=== PATIENT | male | born 1975 | race Caucasian/White ===

== ENCOUNTER 2016-04-30 17:34 | Emergency (ER) | payer OTHER ==
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
[~2016-04-30 17:34] MED LIST: NO MEDICATIONS
== END 2016-04-30 18:17 | disposition home or self-care (01) ==
LOC: CFTX 17:34
DX: S46.912A Strain of unspecified muscle, fascia and tendon at shoulder and upper arm level, left arm, initial encounter (principal); S80.02XA Contusion of left knee, initial encounter; F17.210 Nicotine dependence, cigarettes, uncomplicated; V43.52XA Car driver injured in collision with other type car in traffic accident, initial encounter
CPT/HCPCS: 29530; 70450; 71020; 73562; 99284

== ENCOUNTER → 2016-05-17 | Outpatient (CLI) | payer OTHER ==
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
== END | disposition home or self-care (01) ==
LOC: SRAD 11:08
DX: S29.9XXA Unspecified injury of thorax, initial encounter (principal)
CPT/HCPCS: 72070; 73030

== ENCOUNTER 2016-08-27 23:23 | Emergency (ER) | payer OTHER ==
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
== END 2016-08-28 05:00 | disposition home or self-care (01) ==
LOC: CED 23:23
DX: S09.90XA Unspecified injury of head, initial encounter (principal); S22.42XA Multiple fractures of ribs, left side, initial encounter for closed fracture; S01.81XA Laceration without foreign body of other part of head, initial encounter; F17.210 Nicotine dependence, cigarettes, uncomplicated; Y04.0XXA Assault by unarmed brawl or fight, initial encounter; Y92.9 Unspecified place or not applicable
CPT/HCPCS: 12011; 70450; 71101; 72040; 72125; 99284